=== PATIENT | male | born 1945 | race Caucasian/White ===

== ENCOUNTER 2016-06-22 12:58 | Emergency (ER) | payer OTHER ==
[~2016-06-22] VITALS: Ht 175.3 cm; Wt 94.0 kg
[2016-06-22 18:34] LABS: BASOPHILS % (AUTO) 0.4 % (0.0-2.0); EOSINOPHILS % (AUTO) 2.2 % (1.0-6.0); HEMATOCRIT 42.8 % (41-53); HEMOGLOBIN 13.9 g/dL (13.5-17.5); LYMPHOCYTES # (AUTO) 2.8 K/uL (1.0-4.8); LYMPHOCYTES % (AUTO) 33.3 % (22.0-44.0); MEAN CORPUSCULAR HEMOGLOBIN 29.2 pg (26.0-34.0); MEAN CORPUSCULAR HGB CONC 32.4 G/dL (31.0-37.0); MEAN CORPUSCULAR VOLUME 90 fL (80-100); MONOCYTES # (AUTO) 0.9 K/uL (0.1-1.0); MONOCYTES % (AUTO) 11.1 % (2.0-9.0); NEUTROPHILS # (AUTO) 4.4 K/uL (1.8-7.7); PLATELET COUNT (AUTO) 178 K/uL (150-450); RED BLOOD CELL COUNT(AUTO) 4.75 MIL/uL (4.50-5.90); RED CELL DISTRIBUTION WIDTH 12.8 % (11.5-14.5); WHITE BLOOD COUNT (AUTO) 8.4 K/uL (4.5-11.0)
[2016-06-22 18:40] LABS: APPEARANCE,URINE CLEAR (CLEAR); GLUCOSE, URINE (UA) NEGATIVE (NEGATIVE); KETONES,URINE NEGATIVE (NEGATIVE); LEUKOCYTE ESTERASE ,URINE NEGATIVE (NEGATIVE); OCCULT BLOOD,URINE NEGATIVE (NEGATIVE); PH,URINE 5.5 (5.0-8.0); PROTEIN,URINE NEGATIVE (NEGATIVE)
[2016-06-22 18:43] LABS: ADD UA MICROSCOPIC NO
[2016-06-22 18:47] LABS: ANION GAP 9 mmol/L (8-16); CALCIUM, TOTAL 8.6 mg/dL (8.8-10.5); CARBON DIOXIDE 27 mmol/L (22-29); CHLORIDE 102 mmol/L (98-107); GLOMERULAR FILTR. RATE CALC > 60 mL/min (>60); POTASSIUM 3.9 mmol/L (3.5-5.1); SODIUM SERUM 138 mmol/L (136-145); UREA NITROGEN, BLOOD 15 mg/dL (7-18)
[2016-06-22 18:52] LABS: ALANINE AMINOTRANSFERASE 58 U/L (12-78); ALBUMIN 3.9 g/dL (3.4-5.0); ASPARTATE AMINOTRANSFERASE 26 U/L (15-37); BILIRUBIN,TOTAL 0.7 mg/dL (0.1-1.0); TOTAL PROTEIN, SERUM 7.5 g/dL (6.4-8.2)
[2016-06-22 19:35] VITALS: BP 157/70
== END 2016-06-22 19:41 | disposition home or self-care (01) ==
LOC: EMS 13:00
DX: N45.1 Epididymitis (principal); R07.9 Chest pain, unspecified; E78.00 Pure hypercholesterolemia, unspecified
CPT/HCPCS: 71020; 76870; 93005; 99285

== ENCOUNTER 2016-07-07 08:05 | Inpatient (IN) | payer OTHER ==
[~2016-07-07] VITALS: Ht 170.2 cm; Wt 97.0 kg
[2016-07-07] MEDS ORDERED: LISI10TA7 PO (08:11)
[2016-07-07] MEDS ORDERED: ASPI81TA2 PO (08:11)
[2016-07-07 08:30] LABS: BASOPHILS # (AUTO) 0.03 K/uL (0.00-0.20); BASOPHILS % (AUTO) 0.3 % (0.0-2.0); EOSINOPHILS % (AUTO) 1.16 % (1.0-6.0); HEMATOCRIT 45.1 % (41-53); HEMOGLOBIN 14.8 g/dL (13.5-17.5); LYMPHOCYTES % (AUTO) 22.7 % (22.0-44.0); MEAN CORPUSCULAR HEMOGLOBIN 29.1 pg (26.0-34.0); MEAN CORPUSCULAR HGB CONC 32.9 G/dL (31.0-37.0); MEAN CORPUSCULAR VOLUME 89 fL (80-100); MONOCYTES # (AUTO) 0.8 K/uL (0.1-1.0); NEUTROPHILS # (AUTO) 5.8 K/uL (1.8-7.7); NEUTROPHILS % (AUTO) 66.8 % (40.0-70.0); PLATELET COUNT (AUTO) 206 K/uL (150-450); RED BLOOD CELL COUNT(AUTO) 5.09 MIL/uL (4.50-5.90); RED CELL DISTRIBUTION WIDTH 12.6 % (11.5-14.5); WHITE BLOOD COUNT (AUTO) 8.7 K/uL (4.5-11.0)
[2016-07-07] MEDS ORDERED: NITROGLYCERIN 400 MCG/SUBLINGUAL SPRAY 4.9 GM BOTTLE SL ONE (08:30)
[2016-07-07] MEDS ORDERED: NITROGLYCERIN 2% (1 GM=INCH) PACKET TP ONE (08:30)
[2016-07-07 08:40] LABS: ANION GAP 10 mmol/L (8-16); CALCIUM, TOTAL 8.8 mg/dL (8.8-10.5); CARBON DIOXIDE 27 mmol/L (22-29); CHLORIDE 101 mmol/L (98-107); CREATININE 1.06 mg/dL (0.60-1.30); GLOMERULAR FILTR. RATE CALC > 60 mL/min (>60); POTASSIUM 3.9 mmol/L (3.5-5.1); SODIUM SERUM 138 mmol/L (136-145); UREA NITROGEN, BLOOD 14 mg/dL (7-18)
[2016-07-07 08:47] LABS: ALANINE AMINOTRANSFERASE 38 U/L (12-78); ALBUMIN 4.1 g/dL (3.4-5.0); ASPARTATE AMINOTRANSFERASE 20 U/L (15-37); BILIRUBIN,TOTAL 1.2 mg/dL (0.1-1.0); CREATINE KINASE, TOTAL 52 U/L (39-308); TOTAL PROTEIN, SERUM 7.8 g/dL (6.4-8.2)
[2016-07-07 08:53] LABS: B-TYPE NATRIURETIC PEPTIDE 8 pg/mL (0-100)
[2016-07-07] MEDS ORDERED: ONDANSETRON HCL 4 MG/2 ML VIAL IVP PRN ×2 (09:30→21:00)
[2016-07-07 10:25] VITALS: BP 131/62
[2016-07-07] MEDS ORDERED: PNEUMOCOCCAL VACCINE POLYVALENT 0.5 ML VIAL [PPSV23] IM ONE (11:30)
[2016-07-07] MEDS ORDERED: SENN-30 PO (11:47)
[2016-07-07] MEDS ORDERED: SIMV5TAB6 PO (11:47)
[2016-07-07 16:10] VITALS: BP 138/84
[2016-07-07] MEDS ORDERED: ASPIRIN 81 MG CHEWABLE TABLET PO SCH (16:45)
[2016-07-07] MEDS: LISINOPRIL 10 MG TABLET PO SCH (16:45)
[2016-07-07 16:58] VITALS: BP 137/66
[2016-07-07] MEDS: SENNA 187 MG TABLET PO SCH (17:09)
[2016-07-07 19:36] VITALS: BP 150/71
[2016-07-07] MEDS ORDERED: SIMVASTATIN 5 MG TABLET PO SCH (21:00)
[2016-07-07] MEDS ORDERED: HYDROCODONE/ACETAMINOPHEN 5-325 MG TABLET PO PRN (21:00)
[2016-07-07] MEDS ORDERED: AmLODIPine BESYLATE 10 MG TABLET PO SCH (21:00)
[2016-07-07] MEDS ORDERED: ZOLPIDEM TARTRATE 10 MG TABLET PO PRN (21:00)
[2016-07-07] MEDS ORDERED: IPRATROPIUM BROMIDE 0.5 MG/2.5 ML NEB SOLUTION NEB PRN (21:00)
[2016-07-07] MEDS ORDERED: SENNA 218 MG/5 ML SYRUP ORAL.SYG PO SCH (21:00)
[2016-07-07] MEDS: DOCUSATE SODIUM 100 MG CAPSULE PO SCH ×2 (21:00→21:14)
[2016-07-07] MEDS ORDERED: ACETAMINOPHEN 325 MG TABLET PO PRN (21:00)
[2016-07-07] MEDS ORDERED: MAGNESIUM HYDROXIDE SUSPENSION 30 ML UDCUP PO PRN (21:00)
[2016-07-07] MEDS ORDERED: MORPHINE SULFATE 2 MG/ML SYRINGE IVP PRN (21:00)
[2016-07-07 23:21] VITALS: BP 142/66
[2016-07-08] MEDS: NITROGLYCERIN 2% (1 GM=INCH) PACKET TP SCH ×2 (00:28→05:57)
[2016-07-08 03:21] VITALS: BP 131/77
[2016-07-08 04:23] VITALS: BP 126/66
[2016-07-08 07:11] LABS: BASOPHILS % (AUTO) 0.5 % (0.0-2.0); EOSINOPHILS % (AUTO) 1.8 % (1.0-6.0); HEMATOCRIT 42.3 % (41-53); HEMOGLOBIN 13.9 g/dL (13.5-17.5); LYMPHOCYTES # (AUTO) 2.2 K/uL (1.0-4.8); MEAN CORPUSCULAR HEMOGLOBIN 29.1 pg (26.0-34.0); MEAN CORPUSCULAR HGB CONC 32.8 G/dL (31.0-37.0); MEAN CORPUSCULAR VOLUME 89 fL (80-100); MONOCYTES # (AUTO) 0.9 K/uL (0.1-1.0); MONOCYTES % (AUTO) 11.4 % (2.0-9.0); NEUTROPHILS # (AUTO) 4.3 K/uL (1.8-7.7); NEUTROPHILS % (AUTO) 57.3 % (40.0-70.0); PLATELET COUNT (AUTO) 199 K/uL (150-450); RED BLOOD CELL COUNT(AUTO) 4.76 MIL/uL (4.50-5.90); RED CELL DISTRIBUTION WIDTH 12.2 % (11.5-14.5); WHITE BLOOD COUNT (AUTO) 7.5 K/uL (4.5-11.0)
[2016-07-08 07:29] LABS: ALANINE AMINOTRANSFERASE 35 U/L (12-78); ALBUMIN 3.8 g/dL (3.4-5.0); ANION GAP 8 mmol/L (8-16); ASPARTATE AMINOTRANSFERASE 20 U/L (15-37); BILIRUBIN,TOTAL 1.2 mg/dL (0.1-1.0); CALCIUM, TOTAL 8.5 mg/dL (8.8-10.5); CARBON DIOXIDE 28 mmol/L (22-29); CHLORIDE 102 mmol/L (98-107); CHOL/HDL RATIO 2.5 (4.2-7.3); CREATININE 1.07 mg/dL (0.60-1.30); GLOMERULAR FILTR. RATE CALC > 60 mL/min (>60); POTASSIUM 4.2 mmol/L (3.5-5.1); SODIUM SERUM 138 mmol/L (136-145); THYROID STIMULATING HORMONE 0.57 uIU/mL (0.36-3.74); TOTAL PROTEIN, SERUM 7.3 g/dL (6.4-8.2); UREA NITROGEN, BLOOD 12 mg/dL (7-18)
[2016-07-08 07:35] LABS: PROSTATE SPECIFIC ANTIGEN 4.78 ng/mL (0.00-4.00)
[2016-07-08 07:37] VITALS: BP 122/62
[2016-07-08] MEDS: DOCUSATE SODIUM 100 MG CAPSULE PO SCH (08:27)
[2016-07-08] MEDS: LISINOPRIL 10 MG TABLET PO SCH (08:28)
[2016-07-08] MEDS ORDERED: SIMVASTATIN 5 MG TABLET PO SCH (09:00)
[2016-07-08] MEDS ORDERED: ASPIRIN 81 MG CHEWABLE TABLET PO SCH (09:00)
[2016-07-08] MEDS ORDERED: PANTOPRAZOLE SODIUM 40 MG/VIAL IVP SCH ×2 (09:00)
[2016-07-08] MEDS ORDERED: AMLO-512 PO (09:25)
[2016-07-08] MEDS ORDERED: COMP5 PO (09:26)
[2016-07-08] MEDS: SENNA 187 MG TABLET PO SCH (09:36)
== END 2016-07-08 09:55 | disposition home or self-care (01) | DRG 313 ==
LOC: EMS 08:06 → 5S 09:54 → UNDOADMIN 10:00
PROVIDERS: ADMIT Hospitalist; ATTEND Hospitalist
DX: R07.9 Chest pain, unspecified (principal); I10 Essential (primary) hypertension; I25.10 Atherosclerotic heart disease of native coronary artery without angina pectoris; E78.5 Hyperlipidemia, unspecified; E78.00 Pure hypercholesterolemia, unspecified; Z79.82 Long term (current) use of aspirin; Z79.899 Other long term (current) drug therapy; Z95.1 Presence of aortocoronary bypass graft; Z95.2 Presence of prosthetic heart valve; Z28.21 Immunization not carried out because of patient refusal
CPT/HCPCS: 84153; 84443; 90471; 93005; 99285; C9113; J2405